=== PATIENT | female | born 1975 | race Caucasian/White ===

== ENCOUNTER 2016-10-18 09:51 | Day surgery (SDC) | payer BC ==
--- NOTE | 2016-10-18 07:19 | History and Physical Report ---
DATE: 10/18/2016. CHIEF COMPLAINT: This patient has had extensive spinal surgery for her scoliosis. HISTORY OF PRESENT ILLNESS: She had a spinal infusion device previously in place which had to be removed for further hardware surgery. She is here for replacement of the device. PAST MEDICAL HISTORY: Asthmatic bronchitis and degenerative arthritis. PAST SURGICAL HISTORY: Spinal infusion, hysterectomy, pump implant, and pump removal. MEDICATIONS ON ADMISSION: To be provided. ALLERGIES: Penicillin, Keflex, aspirin, sulfa. SOCIAL HISTORY: Caffeine. FAMILY: Hypertension. REVIEW OF SYSTEMS: The patient is appropriate. PHYSICAL EXAMINATION: General: Height is 5 feet, 3 inches. Weight is 200 pounds. Vital Signs: Unavailable. HEENT: Within normal limits. Lungs: Clear. Heart: Regular rate and rhythm. Abdomen: Nontender. Musculoskeletal: Examination of the musculoskeletal system shows diffuse multilevel tenderness adjacent to a laminectomy scar which extends throughout most of the thoracic and lumbar spine. The primary region of pain and tenderness is lower extremity, across the back, and bilateral legs. Sensory ruelas are intact. Ambulation: Assistive device and wheelchair dependent. Neurologic: Cranial nerves are intact. IMPRESSION: 1. POSTLUMBAR LAMINECTOMY SYNDROME, ICD-10 CODE M96.1. 2. LUMBAR RADICULITIS, ICD-10 CODE M54.16 AND M54.17. PLAN: The patient is here for re-implantation of a spinal infusion system with catheter and pump. The medication will be hydromorphone, and we will start this at a basic rate. Because of the extensive surgery, an epidural blood patch will not be performed. The potential risks, side effects, and complications including spinal cord injury, nerve root injury, and spinal headache have all been carefully reviewed and discussed. She understands the risks. She has read all of the appropriate information. We will consider the procedure to be an overnight stay because of the complicated anatomy. MIGUEL RIOS D.O. Date & Time JOB NUMBER: [id number] cc: María Elena Catalan
[~2016-10-18 09:51] MED LIST: HYDROMORPHONE HCL IV ONE; HYDROMORPHONE HCL/PF 0.002 MG in 0.9 % SODIUM CHLORIDE 10ML VIA 0.998 ML IVP ONE; SODIUM CHLORIDE 0.9% IV ONE
[2016-10-18] MEDS ORDERED: BUPIVACAINE 0.5% W/EPI MPF 30 ML VIAL IVP ONE (15:10)
[2016-10-18] MEDS ORDERED: LIDOCAINE 1% W/EPI 1:200,000 MPF 30ML SQ ONE (15:10)
[2016-10-18] MEDS ORDERED: CLINDAMYCIN 600MG/4 ML VIAL IVPB ONE (15:10)
[2016-10-18] MEDS ORDERED: MIDAZOLAM HCL 2MG/2ML VIAL IV ONE (15:48)
[2016-10-18] MEDS ORDERED: HYDRALAZINE 20MG/ML VIAL IV ONE (15:48)
[2016-10-18] MEDS ORDERED: SCOPOLAMINE 1 PATCH TDSY TD ONE (15:48)
[2016-10-18] MEDS ORDERED: PROPOFOL 10 MG/ML VIAL IV ONE (15:48)
[2016-10-18] MEDS ORDERED: ONDANSETRON HCL IV 4 MG/2 ML VIAL IVP ONE (15:48)
[2016-10-18] MEDS ORDERED: *PACU ONLY* KETAMINE HCL 10 MG/ML (20ML) VIAL IV ONE (15:48)
[2016-10-18] MEDS ORDERED: FENTANYL PF 100MCG/2ML VIAL IV ONE (15:48)
[2016-10-18] MEDS ORDERED: LIDOCAINE 2% MDV (20MG/ML) 20ML VIAL IV ONE (15:48)
--- NOTE | 2016-10-18 16:15 | Operative Note - [facility] ---
DATE OF SURGERY: 10/18/16 PREOPERATIVE DIAGNOSIS: 1. POSTLUMBAR LAMINECTOMY SYNDROME, ICD-10 CODE = M96.1. 2. LUMBAR RADICULITIS, ICD-10 CODE = M54.16 AND M54.17. OPERATION: FLUOROSCOPICALLY-GUIDED ATTEMPTED CANNULATION OF SPINAL SPACE FOR SPINAL CATHETER AND SPINAL OPIOID INFUSION UNSUCCESSFUL. SURGEON: MIGUEL RIOS D.O. ANESTHESIA: LOCAL SEDATION. ANESTHESIA PROVIDER: CRAN. JAN INDICATION: This patient with fusion of the lumbar spine from T5 through S1, had a previous spinal opioid infusion system in place infusing Hydromorphone with good success. Unfortunately, she fractured several hardware components and revision surgery was necessary that required removal of the indwelling pump. She is here for replacement. She had had an extra set of rods and other bone areas fused. PROCEDURE: Intravenous line, vital sign monitoring, IV sedation by Anesthesia, patient position prone. Sterile prep, sterile technique. The spinal interspace at L3/4 was marked. Using a 15-gauge spinal needle beveled with a long axis, the spinal space was attempted but unsuccessful. The needle was repositioned at 4/5, also unsuccessful. Needle position at 5/1, unsuccessful. The area was cleaned. Topical antibiotics. Sterile dressing was applied. She was transported to the Recovery Room stable with an unsuccessful attempt at placement of spinal catheter. She will continue her antibiotics. No spinal space was accessed. No dural puncture. No headache protocol required. She will be discharged and evaluated in the office in 7-10 days. DISCHARGE INSTRUCTIONS: 1. The sites can be clean and dry. She can shower when ready. 2. She is on an antibiotic, which she will continue. 3. Office will contact the patient and an evaluation set up. Until then, she is to return to normal protocol and medications. cc: Primary Physician JOB NUMBER: [id number] MTDD
[2018-10-18] MEDS ORDERED: CLINDAMYCIN 600MG/50ML PREMIX 600 MG/50 ML BAG IVPB ONE (06:00)
[2018-10-18] MEDS ORDERED: MECLIZINE 25 MG TABLET PO ONE (06:00)
[2018-10-18] MEDS ORDERED: FAMOTIDINE 20MG TABLET PO ONE (06:00)
[2018-10-18] MEDS ORDERED: ACETAMINOPHEN 1,000 MG/100 ML BTL IV ONE (06:00)
[2018-10-18] MEDS ORDERED: METOCLOPRAMIDE 10 MG TABLET PO ONE (06:00)
== END 2016-10-18 14:29 | disposition home or self-care (01) ==
LOC: SUR 09:51
PROVIDERS: ATTEND Pain Medicine Interventional Pain Medicine
DX: M96.1 Postlaminectomy syndrome, not elsewhere classified (principal); M54.16 Radiculopathy, lumbar region; M54.17 Radiculopathy, lumbosacral region; J45.909 Unspecified asthma, uncomplicated; Z53.09 Procedure and treatment not carried out because of other contraindication
CPT/HCPCS: 62350; 00630; Q9967; J2405; J1170; J3010